=== PATIENT | female | born 1985 | race Caucasian/White ===

== ENCOUNTER 2018-12-18 17:57 | Emergency (ER) | payer OTHER, BC ==
[~2018-12-18] VITALS: Ht 182.8 cm; Wt 140.6 kg
[2018-12-18 21:46] LABS: BILIRUBIN NEGATIVE (NEGATIVE); BLOOD NEGATIVE (NEGATIVE); CLARITY CLEAR (CLEAR); COLOR YELLOW (YELLOW); GLUCOSE 3+ (NEGATIVE); KETONE NEGATIVE (NEGATIVE); LEUKO ESTERASE TRACE (NEGATIVE); NITRITE NEGATIVE (NEGATIVE); SPECIFIC GRAVITY >= 1.030 (1.005-1.030); UROBILINOGEN 0.2 E.U./dl (0.2-1.0)
[2018-12-18 21:53] LABS: EPITHELIAL CELLS TNTC
[2018-12-18 21:54] LABS: BACTERIA 3+; WBC 51-100 wbc/hpf (0-5)
== END 2018-12-18 22:15 | disposition home or self-care (01) ==
LOC: ED 17:57
PROVIDERS: Internal Medicine
DX: H92.02 Otalgia, left ear (principal); M79.602 Pain in left arm; R51 Headache; V43.62XA Car passenger injured in collision with other type car in traffic accident, initial encounter; W22.19XA Striking against or struck by other automobile airbag, initial encounter; Y93.89 Activity, other specified; Y92.488 Other paved roadways as the place of occurrence of the external cause; Y99.8 Other external cause status

== ENCOUNTER 2024-02-23 14:04 | Emergency (ER) | payer BC ==
[~2024-02-23] VITALS: Ht 180.3 cm; Wt 139.7 kg
[2024-02-23] MEDS ORDERED: SPRINTEC 35 MCG1 TA1 PO (14:28)
[2024-02-23] MEDS ORDERED: LISINOPRIL40 MG PO (14:29)
[2024-02-23] MEDS ORDERED: CELECOXIB100 M1 PO (14:29)
[2024-02-23] MEDS ORDERED: ATORVASTATIN CA40 M1 PO (14:29)
[2024-02-23] MEDS ORDERED: METFORMIN HYD1000 MG PO (14:29)
[2024-02-23] MEDS ORDERED: Valacyclovir Hydrochloride 500 MG CAP PO ONE (14:50)
[2024-02-23] MEDS ORDERED: Doxycycline Hyclate 100 MG CAP PO ONE (14:50)
[2024-02-23] MEDS ORDERED: predniSONE 20 MG TAB PO ONE (14:50)
[2024-02-23] MEDS ORDERED: PREDNISONE20 M1 PO (15:36)
[2024-02-23] MEDS ORDERED: ARTIFICIAL TEAR1514 OPH (15:36)
[2024-02-23] MEDS ORDERED: VALTREX1000 MG PO (15:36)
[2024-02-23] MEDS ORDERED: VIBRAMYCIN100 MG PO (15:36)
== END 2024-02-23 16:16 | disposition home or self-care (01) ==
LOC: ED 14:04
DX: G51.0 Bell's palsy (principal); G43.909 Migraine, unspecified, not intractable, without status migrainosus; Z88.1 Allergy status to other antibiotic agents; Z79.899 Other long term (current) drug therapy